=== PATIENT | male | born 1995 | race Asian ===

== ENCOUNTER 2023-11-19 10:10 | Emergency (ER) | payer OTHER ==
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
[2023-11-19] MEDS: LIDOCAINE 1%-EPI 1:100000 20 ML MDV SUBQ STA (10:37)
[2023-11-19 11:42] VITALS: BP 141/84; O2SAT 99
--- NOTE | 2023-11-19 11:43 | XRAY Report ---
PROCEDURE: Finger(s) LT INDICATIONS: lmf inj TECHNIQUE: AP hand, 2 views of the third finger(s) acquired. COMPARISON: None. FINDINGS: Bones: No fractures or dislocations. No suspicious bony lesions. Soft tissues: No suspicious soft tissue calcifications or masses. IMPRESSION: No acute bony abnormality. Reviewed by: Nelson Nieto MD on 11/19/2023 10:42 AM YULI Approved by: Nelson Nieto MD on 11/19/2023 10:42 AM YULI Station ID: [id number]
== END 2023-11-19 11:36 | disposition home or self-care (01) ==
LOC: ED 10:10
DX: M20.012 Mallet finger of left finger(s) (principal); S80.811A Abrasion, right lower leg, initial encounter; S81.811A Laceration without foreign body, right lower leg, initial encounter; V86.99XA Unspecified occupant of other special all-terrain or other off-road motor vehicle injured in nontraffic accident, initial encounter; Y93.53 Activity, golf; Y92.39 Other specified sports and athletic area as the place of occurrence of the external cause
CPT/HCPCS: 12001; 99283; 99284